=== PATIENT | female | born 1980 | race Caucasian/White ===

== ENCOUNTER 2018-08-19 19:08 | Emergency (ER) | payer SELFPAY ==
[2018-08-19] MEDS ORDERED: Morphine 4 MG/ML VIAL ONE (19:32)
[2018-08-19 20:00] LABS: ALT (SGPT) 15 U/L (8-55); AST (SGOT) 12 U/L (5-34); Alkaline Phosphatase 112 U/L (40-150); Anion Gap 16 mmol/L (10-20); BUN (Urea Nitrogen) 12 mg/dL (7.0-18.7); Bilirubin, Total 0.2 mg/dL (0.2-1.2); Calc. Creatinine Clearance 0 mL/min (70-130); Calcium 10.1 mg/dL (7.8-10.44); Carbon Dioxide 23 mmol/L (22-29); Chloride 108 mmol/L (98-107); Estimated GFR-MDRD 83; Globulin 3.3 g/dL (2.4-3.5); Glucose 104 mg/dL (70-105); Protein, Total 7.3 g/dL (6.0-8.3); Sodium 143 mmol/L (136-145)
[2018-08-19 20:01] LABS: Band 2 % (5-11); Eosinophils 10 % (0-10); Hemoglobin 15.4 g/dL (12.0-16.0); Lymphocytes 30 % (21-51); MDiff Complete? YES; Mean Corpuscular HGB CONC 32.7 g/dL (32.0-36.0); Mean Corpuscular Hemoglobin 28.2 pg (27.0-31.0); Mean Corpuscular Volume 86.1 fL (78.0-98.0); Mean Platelet Volume 8.5 fL (7.4-10.4); Monocytes 8 % (0-10); Neutrophil 50 % (42-75); PLT Morphology Comment Appears Adequate; Platelet Count 335 thou/uL (130-400); RBC Distribution Width 11.9 % (11.5-14.5); Red Blood Cell (RBC) Count 5.45 mill/uL (4.20-5.40); White Blood Cell (WBC) Count 9.9 thou/uL (4.8-10.8)
--- NOTE | 2018-08-19 20:02 | RAD ---
CHEST TWO VIEWS: 08/19/18 HISTORY: Shortness of breath and cough. Heart size and mediastinum are within normal limits. The lungs are clear of infiltrates. No signifi cant bony findings. IMPRESSION: No active intrathoracic disease. POS: [facility]
[2018-08-19] MEDS ORDERED: HYDROcodone/Acetaminophen 5/325 mg Tablet ONE (20:41)
[2018-08-19] MEDS ORDERED: Amoxicillin/Potassium Clav 875 MG TAB ONE (20:42)
[2018-08-19] MEDS ORDERED: Ibuprofen 800 MG TAB ONE (20:42)
[2018-08-19] MEDS ORDERED: Benzonatate 100 MG CAP ONE (20:42)
[2018-08-19] MEDS ORDERED: Dexamethasone 10 MG/ML VIAL ONE (20:42)
[2018-08-19] MEDS ORDERED: Ventolin HFA Inhaler 60 PUFF INHALER ONE (21:09)
== END 2018-08-19 22:05 | disposition home or self-care (01) ==
LOC: MADERS 19:08
DX: J20.8 Acute bronchitis due to other specified organisms (principal); B96.89 Other specified bacterial agents as the cause of diseases classified elsewhere
CPT/HCPCS: 36415; 71046; 80053; 83605; 85025; 87040; 87804; 93005; 96374; 96375; J1100; J2270; J7620

== ENCOUNTER 2019-11-04 11:30 | Emergency (ER) | payer BC, SELFPAY ==
--- NOTE | 2019-11-04 14:06 | RAD ---
CHEST 2 VIEWS: Date: 11/04/2019 HISTORY: Cough. COMPARISON: 08/19/2018. FINDINGS: Heart size is normal. The lungs are clear. No pneumonia, edema, or pleural effusion. IMPRESSION: No acute intrathoracic disease. POS: [facility]
== END 2019-11-04 13:40 | disposition home or self-care (01) ==
LOC: MADERS 11:30
DX: J20.9 Acute bronchitis, unspecified (principal); F31.9 Bipolar disorder, unspecified; F17.210 Nicotine dependence, cigarettes, uncomplicated
CPT/HCPCS: 71046

== ENCOUNTER 2021-01-09 01:00 | Emergency (ER) | payer BC, OTHER | END 2021-01-09 01:45 | disposition home or self-care (01) | LOC: MADERS 01:00 | DX: R07.2 Precordial pain (principal); F17.210 Nicotine dependence, cigarettes, uncomplicated | CPT/HCPCS: 99283 ==

== ENCOUNTER 2021-07-03 15:54 | Outpatient (CLI) | payer OTHER | END 2021-07-03 15:55 | disposition home or self-care (01) | LOC: MADRAD 15:54 | PROVIDERS: ATTEND Nurse Practitioner Family | DX: R22.2 Localized swelling, mass and lump, trunk (principal) | CPT/HCPCS: 71046 ==

== ENCOUNTER 2022-03-24 20:17 | Emergency (ER) | payer BC, OTHER ==
[2022-03-24] MEDS ORDERED: Sodium Chloride 0.9% 1,000 ML ONE (21:16)
[2022-03-24] MEDS ORDERED: NS 0.9% w/ 20 MEQ KCL 0 ML ONE (21:16)
[2022-03-24] MEDS ORDERED: Metoclopramide HCl 10 MG/2 ML VIAL ONE (21:16)
[2022-03-24] MEDS ORDERED: diphenhydrAMINE 50 MG/ML VIAL ONE (21:16)
[2022-03-24] MEDS ORDERED: Ketorolac Tromethamine 60 MG/2 ML VIAL ONE (21:18)
[2022-03-24 21:50] LABS: ALT (SGPT) 17 U/L (8-55); AST (SGOT) 14 U/L (5-34); Albumin 3.8 g/dL (3.5-5.0); Alkaline Phosphatase 89 U/L (40-110); Anion Gap 12 mmol/L (10-20); BUN (Urea Nitrogen) 8 mg/dL (7.0-18.7); Bilirubin, Total 0.2 mg/dL (0.2-1.2); Calc. Creatinine Clearance 0 mL/min (70-130); Calcium 8.7 mg/dL (7.8-10.44); Carbon Dioxide 26 mmol/L (22-29); Chloride 106 mmol/L (98-107); Estimated GFR 107; Globulin 2.9 g/dL (2.4-3.5); Glucose 85 mg/dL (70-105); Potassium 3.3 mmol/L (3.5-5.1); Protein, Total 6.7 g/dL (6.0-8.3); Sodium 141 mmol/L (136-145)
[2022-03-25 00:17] LABS: Bilirubin Negative (Negative); Blood, Urine Negative (Negative); Clarity Clear (Clear); Glucose, Urine (Dipstick) Negative (Negative); Ketone, Urine Negative (Negative); Leukocyte Negative (Negative); Nitrite Negative (Negative); Protein, Urine (Dipstick) Negative (Neg-Trace); Urobilinogen 0.2 mg/dL (Less than 2)
[2022-03-25 00:18] LABS: Specific Gravity, Urine 1.006 (1.002-1.036)
[2022-03-25 00:58] LABS: Amphetamine Detected (NotDetected); Barbiturates Screen Not Detected (NotDetected); Benzodiazepine Screen Detected (NotDetected); Cocaine Metabolite Screen Not Detected (NotDetected); Medtox Control Line Valid? VALID (VALID); Methadone Not Detected (NotDetected); Methamphetamine Detected (NotDetected); Opiate Screen Not Detected (NotDetected); Oxycodone Screen Not Detected (NotDetected); Phencyclidine (PCP) Not Detected (NotDetected); THC/Cannabinoid Screen Not Detected (NotDetected); Tricyclic Screen Not Detected (NotDetected)
[2022-03-25 02:38] LABS: Hemoglobin 11.8 g/dL (12.0-15.5); Mean Corpuscular HGB CONC 32.5 g/dL (32.0-36.0); Mean Corpuscular Hemoglobin 27.8 pg (27.0-33.0); Mean Corpuscular Volume 85.6 fl (81.6-98.3); Mean Platelet Volume 12.2 fl (7.4-10.4); Platelet Count 195 10x3/uL (150-450); Red Blood Cell (RBC) Count 4.24 10x6/uL (3.90-5.03); White Blood Cell (WBC) Count 5.2 10x3/uL (3.5-10.5)
[2022-03-25 02:52] LABS: MDiff Complete? YES
[2022-03-25 03:04] LABS: Band 1 % (5-11); Eosinophils 1 % (0-10); Lymphocytes 26 % (21-51); Monocytes 11 % (0-10); Neutrophil 59 % (42-75); Reactive Lymphocytes 1 % (0-10)
[2022-03-25 03:06] LABS: Platelet Morphology Comment Appears Adequate
== END 2022-03-25 01:59 | disposition home or self-care (01) ==
LOC: MADERS 20:17
DX: G43.909 Migraine, unspecified, not intractable, without status migrainosus (principal); F17.210 Nicotine dependence, cigarettes, uncomplicated
CPT/HCPCS: 80053; 80306; 81003; 85025; 96374; 96375; J1200; J1885; J2765; J3480; J7050